=== PATIENT | male | born 1945 | race Caucasian/White ===

== ENCOUNTER → 2020-03-09 09:01 | Outpatient (BNVA) | payer MEDICARE, OTHER, SELFPAY | PROVIDERS: Family Provider Nurse Practitioner; PCP Nurse Practitioner; Visit Provider Internal Medicine Rheumatology | DX: M06.09 Rheumatoid arthritis without rheumatoid factor, multiple sites (principal); Z86.39 Personal history of other endocrine, nutritional and metabolic disease | CPT/HCPCS: 80053; 80061; 85025; 85651; 86140 ==

== ENCOUNTER → 2020-03-13 10:06 | Outpatient (BNVA) | payer MEDICARE, OTHER, SELFPAY | PROVIDERS: Family Provider Nurse Practitioner; PCP Nurse Practitioner; Visit Provider Nurse Practitioner | DX: R39.11 Hesitancy of micturition (principal) | CPT/HCPCS: 81000 ==

== ENCOUNTER 2020-03-18 10:03 | Outpatient (CLI) | payer MEDICARE, OTHER, SELFPAY ==
--- NOTE | 2020-03-18 10:24 | XR_ITS ---
WS: [id number] FOOT RIGHT TECHNIQUE: 3 views of the right foot CLINICAL INFORMATION: rheumatoid arthritis COMPARISON: None. FINDINGS: Osteopenia. Mild PIP and DIP joint narrowing second through fifth digits. Normal metatarsals. Sallie s enthesophyte. Vascular calcification. XR/XR foot RT min 3V* [id number] IMPRESSION: 1. Osteopenia. No significant erosive changes. 2. Mild degenerative arthritis as described above.
--- NOTE | 2020-03-18 10:24 | XR_ITS ---
WS: [id number] PROCEDURE: XR chest 2V* [id number] CLINICAL INFORMATION: rheumatoid arthritis COMPARISON: July 20, 2015 FINDINGS: Heart: Normal cardiac silhouette. Lungs: Mild chronic emphysematous changes. No acute pulmonary infiltrates. No focal pneumonia. Bones: Normal visualized bony structures. XR/XR chest 2V* [id number] IMPRESSION: Mild chronic emphysematous changes. No acute pulmonary infiltrates.
--- NOTE | 2020-03-18 10:24 | XR_ITS ---
WS: [id number] FOOT LEFT TECHNIQUE: 3 views of the left foot CLINICAL INFORMATION: rheumatoid arthritis COMPARISON: None. FINDINGS: Osteopenia. No significant erosive changes. PIP and DIP joint narrowing second through fifth digits. Mild soft tissue edema left foot. Vascular calcification. Small Achilles insertion enthesophyte. XR/XR foot LT min 3V* [id number] IMPRESSION: 1. Osteopenia. No significant erosive changes. 2. Mild degenerative arthritis described above.
--- NOTE | 2020-03-18 10:24 | XR_ITS ---
WS: [id number] HAND RIGHT TECHNIQUE: 3 views of the right hand CLINICAL INFORMATION: rheumatoid arthritis COMPARISON: None. FINDINGS: Degenerative joint space narrowing with subchondral sclerosis and periarticular erosive changes worse involving the first second and third MCP joints. This is worse at the first MCP joint. Mild DIP join t narrowing worse involving the third DIP. Mild narrowing of the radiocarpal joint. Moderate to advan sheyla degenerative narrowing at the first CMC. Vascular calcification. Osteopenia. XR/XR hand RT min 3V* [id number] IMPRESSION: Joint space narrowing with small particular erosions worse involving the first second and third MCP joints
--- NOTE | 2020-03-18 10:24 | XR_ITS ---
WS: [id number] HAND LEFT TECHNIQUE: 3 views of the left hand CLINICAL INFORMATION: rheumatoid arthritis COMPARISON: January 02, 2010 FINDINGS: Degenerative arthritis with joint space narrowing worse involving the first MCP and fourth PIP with b one-on-bone articulation and small periarticular erosions. Associated marginal osteophytes. Small art icular erosions involving the metatarsal heads. Joint space narrowing third MCP. Mild narrowing radio carpal joint. Vascular calcification. XR/XR hand LT min 3V* [id number] IMPRESSION: 1. Small particular erosions with joint space narrowing worse involving the fi rst MCP, fourth PIP, and the third MCP.
== END 2020-03-18 10:04 | disposition home or self-care (01) ==
LOC: RADWPI 10:06
PROVIDERS: Family Provider Nurse Practitioner; PCP Nurse Practitioner; Visit Provider Internal Medicine Rheumatology
DX: M06.9 Rheumatoid arthritis, unspecified; M85.89 Other specified disorders of bone density and structure, multiple sites; M19.072 Primary osteoarthritis, left ankle and foot; M19.071 Primary osteoarthritis, right ankle and foot; M85.842 Other specified disorders of bone density and structure, left hand; M85.841 Other specified disorders of bone density and structure, right hand
CPT/HCPCS: 71046; 73130; 73630; 99214

== ENCOUNTER → 2020-07-21 09:22 | Outpatient (BNVA) | payer MEDICARE, OTHER, SELFPAY | PROVIDERS: Family Provider Nurse Practitioner; PCP Nurse Practitioner; Visit Provider Internal Medicine Rheumatology | DX: Z79.899 Other long term (current) drug therapy (principal); Z11.59 Encounter for screening for other viral diseases; M06.00 Rheumatoid arthritis without rheumatoid factor, unspecified site | CPT/HCPCS: 80076; 82306; 82565; 84460; 85025; 85651; 86140; 86704 ==

== ENCOUNTER → 2020-07-29 09:18 | Outpatient (BNVA) | payer MEDICARE, OTHER, SELFPAY | PROVIDERS: Family Provider Nurse Practitioner; PCP Nurse Practitioner; Visit Provider Internal Medicine Rheumatology | DX: M06.041 Rheumatoid arthritis without rheumatoid factor, right hand (principal); M06.042 Rheumatoid arthritis without rheumatoid factor, left hand; Z79.899 Other long term (current) drug therapy; Z86.007 Personal history of in-situ neoplasm of skin | CPT/HCPCS: 99214 ==

== ENCOUNTER → 2020-10-20 08:04 | Outpatient (BNVA) | payer MEDICARE, OTHER, SELFPAY | PROVIDERS: Family Provider Nurse Practitioner; PCP Nurse Practitioner; Visit Provider Internal Medicine Rheumatology | DX: Z79.899 Other long term (current) drug therapy (principal); M06.9 Rheumatoid arthritis, unspecified; R39.11 Hesitancy of micturition; M06.00 Rheumatoid arthritis without rheumatoid factor, unspecified site | CPT/HCPCS: 80076; 81000; 82565; 85025; 85651; 86140 ==

== ENCOUNTER → 2020-11-10 08:41 | Outpatient (BNVA) | payer MEDICARE, OTHER, SELFPAY | PROVIDERS: Family Provider Nurse Practitioner; PCP Nurse Practitioner; Visit Provider Internal Medicine Rheumatology | DX: M06.041 Rheumatoid arthritis without rheumatoid factor, right hand (principal); M06.042 Rheumatoid arthritis without rheumatoid factor, left hand; Z79.899 Other long term (current) drug therapy; M19.041 Primary osteoarthritis, right hand; M19.042 Primary osteoarthritis, left hand; Z86.007 Personal history of in-situ neoplasm of skin; Z87.891 Personal history of nicotine dependence | CPT/HCPCS: 99214 ==

== ENCOUNTER → 2021-03-15 08:55 | Outpatient (BNVA) | payer MEDICARE, OTHER, SELFPAY | PROVIDERS: Family Provider Nurse Practitioner; PCP Nurse Practitioner; Visit Provider Internal Medicine Rheumatology | DX: Z79.899 Other long term (current) drug therapy (principal); M06.041 Rheumatoid arthritis without rheumatoid factor, right hand; M06.042 Rheumatoid arthritis without rheumatoid factor, left hand; M06.9 Rheumatoid arthritis, unspecified; M06.00 Rheumatoid arthritis without rheumatoid factor, unspecified site; Z71.89 Other specified counseling; R39.11 Hesitancy of micturition | CPT/HCPCS: 36415; 80076; 82565; 85025; 85651; 86140 ==

== ENCOUNTER → 2021-03-22 08:36 | Outpatient (BNVA) | payer MEDICARE, OTHER, SELFPAY | PROVIDERS: Family Provider Nurse Practitioner; PCP Nurse Practitioner; Visit Provider Internal Medicine Rheumatology | DX: M06.041 Rheumatoid arthritis without rheumatoid factor, right hand (principal); M06.042 Rheumatoid arthritis without rheumatoid factor, left hand; Z79.899 Other long term (current) drug therapy; M19.041 Primary osteoarthritis, right hand; M19.042 Primary osteoarthritis, left hand; Z87.891 Personal history of nicotine dependence | CPT/HCPCS: 99214 ==

== ENCOUNTER → 2021-07-06 08:46 | Outpatient (BNVA) | payer MEDICARE, OTHER, SELFPAY | PROVIDERS: Family Provider Nurse Practitioner; PCP Nurse Practitioner; Visit Provider Nurse Practitioner | DX: Z13.6 Encounter for screening for cardiovascular disorders (principal); M06.041 Rheumatoid arthritis without rheumatoid factor, right hand; M06.042 Rheumatoid arthritis without rheumatoid factor, left hand; Z79.899 Other long term (current) drug therapy; R39.11 Hesitancy of micturition; M06.00 Rheumatoid arthritis without rheumatoid factor, unspecified site; Z86.007 Personal history of in-situ neoplasm of skin | CPT/HCPCS: 80048; 80061; 80076; 82565; 85025; 86140 ==

== ENCOUNTER → 2021-07-20 09:16 | Outpatient (BNVA) | payer MEDICARE, OTHER, SELFPAY | PROVIDERS: Family Provider Nurse Practitioner; PCP Nurse Practitioner; Visit Provider Internal Medicine Rheumatology | DX: M06.041 Rheumatoid arthritis without rheumatoid factor, right hand (principal); M06.042 Rheumatoid arthritis without rheumatoid factor, left hand; Z79.899 Other long term (current) drug therapy; M19.041 Primary osteoarthritis, right hand; M19.042 Primary osteoarthritis, left hand; Z86.007 Personal history of in-situ neoplasm of skin; Z71.89 Other specified counseling; Z87.891 Personal history of nicotine dependence | CPT/HCPCS: 99214 ==

== ENCOUNTER → 2021-11-16 09:51 | Outpatient (BNVA) | payer MEDICARE, OTHER, SELFPAY | PROVIDERS: Family Provider Nurse Practitioner; PCP Nurse Practitioner; Visit Provider Internal Medicine Rheumatology | DX: M06.041 Rheumatoid arthritis without rheumatoid factor, right hand (principal); M06.042 Rheumatoid arthritis without rheumatoid factor, left hand; Z79.899 Other long term (current) drug therapy; M19.041 Primary osteoarthritis, right hand; M19.042 Primary osteoarthritis, left hand | CPT/HCPCS: 80076; 82565; 85025; 86140 ==

== ENCOUNTER → 2021-11-25 09:24 | Outpatient (BNVA) | payer MEDICARE, OTHER, SELFPAY | PROVIDERS: Family Provider Nurse Practitioner; PCP Nurse Practitioner; Visit Provider Internal Medicine Rheumatology | DX: M06.041 Rheumatoid arthritis without rheumatoid factor, right hand (principal); M06.042 Rheumatoid arthritis without rheumatoid factor, left hand; Z79.899 Other long term (current) drug therapy; Z71.89 Other specified counseling; M19.041 Primary osteoarthritis, right hand; M19.042 Primary osteoarthritis, left hand; Z87.891 Personal history of nicotine dependence | CPT/HCPCS: 99214 ==

== ENCOUNTER → 2022-01-25 09:42 | Outpatient (BNVA) | payer MEDICARE, OTHER, SELFPAY | PROVIDERS: Family Provider Nurse Practitioner; PCP Nurse Practitioner; Visit Provider Nurse Practitioner | DX: R39.11 Hesitancy of micturition (principal); Z79.899 Other long term (current) drug therapy | CPT/HCPCS: 80053 ==

== ENCOUNTER → 2022-03-14 08:31 | Outpatient (BNVA) | payer MEDICARE, OTHER, SELFPAY | PROVIDERS: Family Provider Nurse Practitioner; PCP Nurse Practitioner; Visit Provider Internal Medicine Rheumatology | DX: M06.041 Rheumatoid arthritis without rheumatoid factor, right hand (principal); M06.042 Rheumatoid arthritis without rheumatoid factor, left hand; Z79.899 Other long term (current) drug therapy; M06.9 Rheumatoid arthritis, unspecified; M06.00 Rheumatoid arthritis without rheumatoid factor, unspecified site | CPT/HCPCS: 80076; 82565; 85025; 86140 ==

== ENCOUNTER → 2022-03-22 08:59 | Outpatient (BNVA) | payer MEDICARE, OTHER, SELFPAY | PROVIDERS: Family Provider Nurse Practitioner; PCP Nurse Practitioner; Visit Provider Internal Medicine Rheumatology | DX: M06.041 Rheumatoid arthritis without rheumatoid factor, right hand (principal); M06.042 Rheumatoid arthritis without rheumatoid factor, left hand; M19.041 Primary osteoarthritis, right hand; M19.042 Primary osteoarthritis, left hand; Z79.899 Other long term (current) drug therapy; Z85.828 Personal history of other malignant neoplasm of skin; Z71.89 Other specified counseling | CPT/HCPCS: 99214 ==

== ENCOUNTER → 2022-07-06 08:19 | Outpatient (BNVA) | payer MEDICARE, OTHER, SELFPAY | PROVIDERS: Family Provider Nurse Practitioner; PCP Nurse Practitioner; Visit Provider Internal Medicine Rheumatology | DX: M06.00 Rheumatoid arthritis without rheumatoid factor, unspecified site (principal); Z79.899 Other long term (current) drug therapy | CPT/HCPCS: 80076; 82565; 85025; 86140 ==

== ENCOUNTER → 2022-07-19 10:04 | Outpatient (BNVA) | payer MEDICARE, OTHER, SELFPAY | PROVIDERS: Family Provider Nurse Practitioner; PCP Nurse Practitioner; Visit Provider Internal Medicine Rheumatology | DX: M06.041 Rheumatoid arthritis without rheumatoid factor, right hand (principal); M06.042 Rheumatoid arthritis without rheumatoid factor, left hand; Z71.89 Other specified counseling; Z79.899 Other long term (current) drug therapy; M19.041 Primary osteoarthritis, right hand; M19.042 Primary osteoarthritis, left hand; Z86.19 Personal history of other infectious and parasitic diseases; Z85.828 Personal history of other malignant neoplasm of skin | CPT/HCPCS: 99214 ==

== ENCOUNTER → 2022-08-02 08:47 | Outpatient (BNVA) | payer MEDICARE, OTHER, SELFPAY | PROVIDERS: Family Provider Nurse Practitioner; PCP Nurse Practitioner; Visit Provider Nurse Practitioner | DX: Z13.6 Encounter for screening for cardiovascular disorders (principal) | CPT/HCPCS: 80053; 80061; 81000 ==

== ENCOUNTER → 2022-11-03 08:43 | Outpatient (BNVA) | payer MEDICARE, OTHER, SELFPAY | PROVIDERS: Family Provider Nurse Practitioner; PCP Nurse Practitioner; Referring Provider Internal Medicine Rheumatology; Visit Provider Internal Medicine Rheumatology | DX: M06.00 Rheumatoid arthritis without rheumatoid factor, unspecified site (principal); Z79.899 Other long term (current) drug therapy; M06.9 Rheumatoid arthritis, unspecified | CPT/HCPCS: 80076; 82565; 85025 ==

== ENCOUNTER → 2022-11-16 09:27 | Outpatient (BNVA) | payer MEDICARE, OTHER, SELFPAY | PROVIDERS: Family Provider Nurse Practitioner; PCP Nurse Practitioner; Visit Provider Internal Medicine Rheumatology | DX: M06.041 Rheumatoid arthritis without rheumatoid factor, right hand (principal); M06.042 Rheumatoid arthritis without rheumatoid factor, left hand; Z79.899 Other long term (current) drug therapy; Z71.89 Other specified counseling; M19.041 Primary osteoarthritis, right hand; M19.042 Primary osteoarthritis, left hand; Z85.828 Personal history of other malignant neoplasm of skin; Z86.19 Personal history of other infectious and parasitic diseases | CPT/HCPCS: 99214 ==

== ENCOUNTER → 2023-01-03 09:00 | Outpatient (BNVA) | payer MEDICARE, OTHER, SELFPAY | PROVIDERS: Family Provider Nurse Practitioner; PCP Nurse Practitioner; Visit Provider Nurse Practitioner | DX: Z13.6 Encounter for screening for cardiovascular disorders (principal); Z79.899 Other long term (current) drug therapy | CPT/HCPCS: 80053; 80061; 85025 ==

== ENCOUNTER → 2023-02-14 09:03 | Outpatient (BNVA) | payer MEDICARE, OTHER, SELFPAY | PROVIDERS: Family Provider Nurse Practitioner; PCP Nurse Practitioner; Visit Provider Internal Medicine Rheumatology | DX: M06.041 Rheumatoid arthritis without rheumatoid factor, right hand (principal); M06.042 Rheumatoid arthritis without rheumatoid factor, left hand; Z79.899 Other long term (current) drug therapy | CPT/HCPCS: 80076; 82565; 85025; 86140 ==

== ENCOUNTER → 2023-02-21 09:44 | Outpatient (BNVA) | payer MEDICARE, OTHER, SELFPAY | PROVIDERS: Family Provider Nurse Practitioner; PCP Nurse Practitioner; Visit Provider Internal Medicine Rheumatology | DX: M06.041 Rheumatoid arthritis without rheumatoid factor, right hand (principal); M06.042 Rheumatoid arthritis without rheumatoid factor, left hand; M19.041 Primary osteoarthritis, right hand; M19.042 Primary osteoarthritis, left hand; Z79.899 Other long term (current) drug therapy; Z71.89 Other specified counseling | CPT/HCPCS: 99214 ==

== ENCOUNTER → 2023-03-24 08:20 | Outpatient (BNVA) | payer MEDICARE, OTHER, SELFPAY | PROVIDERS: Family Provider Nurse Practitioner; PCP Nurse Practitioner; Visit Provider Nurse Practitioner Family | DX: L57.0 Actinic keratosis (principal); Z85.828 Personal history of other malignant neoplasm of skin; Z87.891 Personal history of nicotine dependence; L57.8 Other skin changes due to chronic exposure to nonionizing radiation; D69.2 Other nonthrombocytopenic purpura; D22.5 Melanocytic nevi of trunk; Z71.89 Other specified counseling; L85.3 Xerosis cutis; D48.5 Neoplasm of uncertain behavior of skin | CPT/HCPCS: 11102; 17004; 99213 ==

== ENCOUNTER → 2023-04-18 07:45 | Outpatient (BNVA) | payer MEDICARE, OTHER, SELFPAY | PROVIDERS: Family Provider Nurse Practitioner; PCP Nurse Practitioner; Visit Provider Dermatology | DX: C44.329 Squamous cell carcinoma of skin of other parts of face (principal); L57.0 Actinic keratosis | CPT/HCPCS: 12052; 17000; 17003; 17311 ==

== ENCOUNTER → 2023-06-07 09:10 | Outpatient (BNVA) | payer MEDICARE, OTHER, SELFPAY | PROVIDERS: Family Provider Nurse Practitioner; PCP Nurse Practitioner; Visit Provider Internal Medicine Rheumatology | DX: M06.00 Rheumatoid arthritis without rheumatoid factor, unspecified site (principal); Z79.899 Other long term (current) drug therapy | CPT/HCPCS: 80076; 82565; 85025; 86140 ==

== ENCOUNTER → 2023-06-13 10:16 | Outpatient (BNVA) | payer MEDICARE, OTHER, SELFPAY | PROVIDERS: Family Provider Nurse Practitioner; PCP Nurse Practitioner; Visit Provider Internal Medicine Rheumatology | DX: M06.041 Rheumatoid arthritis without rheumatoid factor, right hand (principal); M06.042 Rheumatoid arthritis without rheumatoid factor, left hand; Z71.89 Other specified counseling; Z79.899 Other long term (current) drug therapy; M19.041 Primary osteoarthritis, right hand; M19.042 Primary osteoarthritis, left hand; Z85.828 Personal history of other malignant neoplasm of skin | CPT/HCPCS: 99214 ==

== ENCOUNTER → 2023-07-31 09:55 | Outpatient (BNVA) | payer MEDICARE, OTHER, SELFPAY | PROVIDERS: Family Provider Nurse Practitioner; PCP Nurse Practitioner; Visit Provider Nurse Practitioner Family | DX: L57.8 Other skin changes due to chronic exposure to nonionizing radiation (principal); D69.2 Other nonthrombocytopenic purpura; L81.4 Other melanin hyperpigmentation; D22.5 Melanocytic nevi of trunk; L85.3 Xerosis cutis; Z92.3 Personal history of irradiation; L82.1 Other seborrheic keratosis; Z08 Encounter for follow-up examination after completed treatment for malignant neoplasm; Z85.828 Personal history of other malignant neoplasm of skin; L57.0 Actinic keratosis | CPT/HCPCS: 17004; 99213 ==

== ENCOUNTER → 2023-08-21 09:06 | Outpatient (BNVA) | payer MEDICARE, OTHER, SELFPAY | PROVIDERS: Family Provider Nurse Practitioner; PCP Nurse Practitioner; Visit Provider Nurse Practitioner | DX: Z13.6 Encounter for screening for cardiovascular disorders (principal); Z79.899 Other long term (current) drug therapy | CPT/HCPCS: 80053; 80061; 85025; 85651; 86140 ==

== ENCOUNTER → 2023-10-18 10:17 | Outpatient (BNVA) | payer MEDICARE, OTHER, SELFPAY | PROVIDERS: Family Provider Nurse Practitioner; PCP Nurse Practitioner; Visit Provider Internal Medicine Rheumatology | DX: Z79.899 Other long term (current) drug therapy (principal); M06.041 Rheumatoid arthritis without rheumatoid factor, right hand; M06.042 Rheumatoid arthritis without rheumatoid factor, left hand; Z71.89 Other specified counseling; M19.041 Primary osteoarthritis, right hand; M19.042 Primary osteoarthritis, left hand | CPT/HCPCS: 99214 ==

== ENCOUNTER → 2023-10-25 08:09 | Outpatient (BNVA) | payer MEDICARE, OTHER, SELFPAY | PROVIDERS: Family Provider Nurse Practitioner; PCP Nurse Practitioner; Visit Provider Nurse Practitioner Family | DX: L57.0 Actinic keratosis (principal); L81.4 Other melanin hyperpigmentation; L57.8 Other skin changes due to chronic exposure to nonionizing radiation; D69.2 Other nonthrombocytopenic purpura | CPT/HCPCS: 17004; 99213 ==

== ENCOUNTER → 2023-11-22 08:46 | Outpatient (BNVA) | payer MEDICARE, OTHER, SELFPAY | PROVIDERS: Family Provider Nurse Practitioner; PCP Nurse Practitioner; Visit Provider Internal Medicine Rheumatology | DX: Z79.899 Other long term (current) drug therapy (principal); M06.041 Rheumatoid arthritis without rheumatoid factor, right hand; M06.042 Rheumatoid arthritis without rheumatoid factor, left hand | CPT/HCPCS: 80076; 82565; 85025; 86140 ==

== ENCOUNTER → 2024-01-10 08:26 | Outpatient (BNVA) | payer MEDICARE, OTHER, SELFPAY | PROVIDERS: Family Provider Nurse Practitioner; PCP Nurse Practitioner; Visit Provider Internal Medicine Rheumatology | DX: Z13.6 Encounter for screening for cardiovascular disorders (principal); Z79.899 Other long term (current) drug therapy; M06.00 Rheumatoid arthritis without rheumatoid factor, unspecified site | CPT/HCPCS: 80053; 80061; 80076; 82565; 85025; 86140 ==

== ENCOUNTER → 2024-01-24 10:39 | Outpatient (BNVA) | payer MEDICARE, OTHER, SELFPAY | PROVIDERS: Family Provider Nurse Practitioner; PCP Nurse Practitioner; Visit Provider Internal Medicine Rheumatology | DX: Z79.899 Other long term (current) drug therapy (principal); M06.041 Rheumatoid arthritis without rheumatoid factor, right hand; M06.042 Rheumatoid arthritis without rheumatoid factor, left hand; Z71.89 Other specified counseling; M19.041 Primary osteoarthritis, right hand; M19.042 Primary osteoarthritis, left hand | CPT/HCPCS: 99214 ==

== ENCOUNTER → 2024-01-31 08:41 | Outpatient (BNVA) | payer MEDICARE, OTHER, SELFPAY | PROVIDERS: Family Provider Nurse Practitioner; PCP Nurse Practitioner; Visit Provider Nurse Practitioner Family | DX: L57.0 Actinic keratosis (principal); L57.8 Other skin changes due to chronic exposure to nonionizing radiation; L81.4 Other melanin hyperpigmentation; D69.2 Other nonthrombocytopenic purpura; L85.3 Xerosis cutis; Z85.828 Personal history of other malignant neoplasm of skin | CPT/HCPCS: 17004; 99213 ==

== ENCOUNTER → 2024-06-03 08:59 | Outpatient (BNVA) | payer MEDICARE, OTHER, SELFPAY | PROVIDERS: Family Provider Nurse Practitioner; PCP Nurse Practitioner; Visit Provider Nurse Practitioner Family | DX: L57.0 Actinic keratosis (principal); L57.8 Other skin changes due to chronic exposure to nonionizing radiation; L81.4 Other melanin hyperpigmentation; D69.2 Other nonthrombocytopenic purpura; Z85.828 Personal history of other malignant neoplasm of skin | CPT/HCPCS: 17000; 99213 ==

== ENCOUNTER → 2024-06-19 08:36 | Outpatient (BNVA) | payer MEDICARE, OTHER, SELFPAY | PROVIDERS: Family Provider Nurse Practitioner; PCP Nurse Practitioner; Visit Provider Nurse Practitioner | DX: Z79.899 Other long term (current) drug therapy (principal); M06.041 Rheumatoid arthritis without rheumatoid factor, right hand; M06.042 Rheumatoid arthritis without rheumatoid factor, left hand | CPT/HCPCS: 80053; 80061; 80076; 85025; 85651; 86140 ==

== ENCOUNTER → 2024-06-26 10:07 | Outpatient (BNVA) | payer MEDICARE, OTHER, SELFPAY | PROVIDERS: Family Provider Nurse Practitioner; PCP Nurse Practitioner; Visit Provider Internal Medicine Rheumatology | DX: M06.041 Rheumatoid arthritis without rheumatoid factor, right hand (principal); M06.042 Rheumatoid arthritis without rheumatoid factor, left hand; Z79.899 Other long term (current) drug therapy; Z71.85 Encounter for immunization safety counseling; M19.041 Primary osteoarthritis, right hand; M19.042 Primary osteoarthritis, left hand; Z85.828 Personal history of other malignant neoplasm of skin | CPT/HCPCS: 99214 ==

== ENCOUNTER → 2024-09-18 08:26 | Outpatient (BNVA) | payer MEDICARE, OTHER, SELFPAY | PROVIDERS: Family Provider Nurse Practitioner; PCP Nurse Practitioner; Visit Provider Internal Medicine Rheumatology | DX: Z79.899 Other long term (current) drug therapy (principal); M06.041 Rheumatoid arthritis without rheumatoid factor, right hand; M06.042 Rheumatoid arthritis without rheumatoid factor, left hand | CPT/HCPCS: 80076; 82565; 85025; 85651; 86140 ==

== ENCOUNTER → 2024-10-17 10:39 | Outpatient (BNVA) | payer MEDICARE, OTHER, SELFPAY | PROVIDERS: Family Provider Nurse Practitioner; PCP Nurse Practitioner; Visit Provider Nurse Practitioner Family | DX: L57.8 Other skin changes due to chronic exposure to nonionizing radiation (principal); L81.4 Other melanin hyperpigmentation; D69.2 Other nonthrombocytopenic purpura; Z08 Encounter for follow-up examination after completed treatment for malignant neoplasm; Z85.828 Personal history of other malignant neoplasm of skin | CPT/HCPCS: 17004; 99213 ==

== ENCOUNTER → 2024-12-09 08:18 | Outpatient (BNVA) | payer MEDICARE, OTHER, SELFPAY | PROVIDERS: Family Provider Nurse Practitioner; PCP Nurse Practitioner; Visit Provider Internal Medicine Rheumatology | DX: Z79.899 Other long term (current) drug therapy (principal); Z13.6 Encounter for screening for cardiovascular disorders; M06.041 Rheumatoid arthritis without rheumatoid factor, right hand; M06.042 Rheumatoid arthritis without rheumatoid factor, left hand | CPT/HCPCS: 80053; 80061; 80076; 82565; 85025; 85651; 86140 ==

== ENCOUNTER → 2025-01-01 09:10 | Outpatient (BNVA) | payer MEDICARE, OTHER, SELFPAY | PROVIDERS: Family Provider Nurse Practitioner; PCP Nurse Practitioner; Visit Provider Internal Medicine Rheumatology | DX: M06.041 Rheumatoid arthritis without rheumatoid factor, right hand (principal); M06.042 Rheumatoid arthritis without rheumatoid factor, left hand; Z71.89 Other specified counseling; Z79.899 Other long term (current) drug therapy; M19.041 Primary osteoarthritis, right hand; M19.042 Primary osteoarthritis, left hand | CPT/HCPCS: 99214 ==

== ENCOUNTER → 2025-01-22 09:26 | Outpatient (BNVA) | payer MEDICARE, OTHER, SELFPAY | PROVIDERS: Family Provider Nurse Practitioner; PCP Nurse Practitioner; Visit Provider Nurse Practitioner Family | DX: L57.8 Other skin changes due to chronic exposure to nonionizing radiation (principal); L81.4 Other melanin hyperpigmentation; D69.2 Other nonthrombocytopenic purpura; Z08 Encounter for follow-up examination after completed treatment for malignant neoplasm; Z85.828 Personal history of other malignant neoplasm of skin; L57.0 Actinic keratosis | CPT/HCPCS: 17000; 99213 ==

== ENCOUNTER → 2025-03-19 08:37 | Outpatient (BNVA) | payer MEDICARE, OTHER, SELFPAY | PROVIDERS: Family Provider Nurse Practitioner; PCP Nurse Practitioner; Visit Provider Internal Medicine Rheumatology | DX: M06.00 Rheumatoid arthritis without rheumatoid factor, unspecified site (principal) | CPT/HCPCS: 80076; 82565; 85025; 85651; 86140 ==

== ENCOUNTER → 2025-04-07 10:13 | Outpatient (BNVA) | payer MEDICARE, OTHER, SELFPAY | PROVIDERS: Family Provider Nurse Practitioner; PCP Nurse Practitioner; Visit Provider Nurse Practitioner Family | DX: L57.8 Other skin changes due to chronic exposure to nonionizing radiation (principal); L81.4 Other melanin hyperpigmentation; D69.2 Other nonthrombocytopenic purpura; D22.4 Melanocytic nevi of scalp and neck; Z08 Encounter for follow-up examination after completed treatment for malignant neoplasm; R20.8 Other disturbances of skin sensation; Z78.9 Other specified health status; Z29.89 Encounter for other specified prophylactic measures; L57.0 Actinic keratosis | CPT/HCPCS: 17000; 17110; 99213 ==

== ENCOUNTER 2025-05-28 08:38 | Outpatient (CLI) | payer MEDICARE, OTHER, SELFPAY ==
[2025-05-28 10:16] LABS: Hematocrit 45.5 % (37-53); Hemoglobin 15.30 g/dL (11.27-16.99); Mean Corpuscular HGB Conc 33.6 g/dL (30-55); Mean Corpuscular Hemoglobin 34.2 pg (27-33); Mean Corpuscular Volume 101.6 fl (82-101); Nucleated Red Blood Cells % 0 %; Platelet Count 188 10^3/cmm (157-399); Red Blood Count 4.48 10^6/uL (3.85-5.65); White Blood Count 5.10 10^3/uL (3.29-11.43)
[2025-05-28 10:52] LABS: Alanine Aminotransferase 17 U/L (0-41); Albumin Level 4.2 g/dL (3.5-5.2); Alkaline Phosphatase 63 U/L (40-130); Aspartate Amino Transferase 23 U/L (0-40); Globulin 2.7 g/dL (1.3-4.6); Total Protein 6.9 g/dL (6.6-8.7)
== END 2025-05-28 08:39 | disposition home or self-care (01) ==
LOC: LAB 08:41
PROVIDERS: PCP Nurse Practitioner; Visit Provider Internal Medicine Rheumatology
DX: Z79.899 Other long term (current) drug therapy (principal); M06.00 Rheumatoid arthritis without rheumatoid factor, unspecified site
CPT/HCPCS: 36415; 80076; 82565; 85025; 85651; 86140

== ENCOUNTER → 2025-06-17 09:05 | Outpatient (BNVA) | payer MEDICARE, OTHER, SELFPAY | PROVIDERS: Family Provider Nurse Practitioner; PCP Nurse Practitioner; Visit Provider Internal Medicine Rheumatology | DX: M06.041 Rheumatoid arthritis without rheumatoid factor, right hand (principal); M06.042 Rheumatoid arthritis without rheumatoid factor, left hand; Z71.85 Encounter for immunization safety counseling; Z79.899 Other long term (current) drug therapy; M19.041 Primary osteoarthritis, right hand; M19.042 Primary osteoarthritis, left hand | CPT/HCPCS: 99214 ==

== ENCOUNTER → 2025-06-26 08:56 | Outpatient (BNVA) | payer MEDICARE, OTHER, SELFPAY | PROVIDERS: Family Provider Nurse Practitioner; PCP Nurse Practitioner; Visit Provider Nurse Practitioner Family | DX: L57.8 Other skin changes due to chronic exposure to nonionizing radiation (principal); L81.4 Other melanin hyperpigmentation; D22.4 Melanocytic nevi of scalp and neck; Z08 Encounter for follow-up examination after completed treatment for malignant neoplasm; Z85.828 Personal history of other malignant neoplasm of skin | CPT/HCPCS: 17000; 69100; 99213 ==

== ENCOUNTER 2025-09-17 08:59 | Outpatient (CLI) | payer MEDICARE, OTHER, SELFPAY ==
[2025-09-17 09:39] LABS: Hematocrit 48.3 % (37-53); Hemoglobin 15.90 g/dL (11.27-16.99); Mean Corpuscular HGB Conc 32.9 g/dL (30-55); Mean Corpuscular Hemoglobin 33.0 pg (27-33); Mean Corpuscular Volume 100.2 fl (82-101); Nucleated Red Blood Cells % 0 %; Platelet Count 192 10^3/cmm (157-399); Red Blood Count 4.82 10^6/uL (3.85-5.65); White Blood Count 5.03 10^3/uL (3.29-11.43)
[2025-09-17 10:05] LABS: Alanine Aminotransferase 13 U/L (0-41); Albumin Level 4.4 g/dL (3.5-5.2); Alkaline Phosphatase 79 U/L (40-130); Aspartate Amino Transferase 22 U/L (0-40); Globulin 2.9 g/dL (1.3-4.6); Total Protein 7.3 g/dL (6.6-8.7)
[2025-09-17 10:21] LABS: Hepatitis B Surface Antigen Non-Reactive (Nonreactive)
== END 2025-09-17 09:00 | disposition home or self-care (01) ==
LOC: LAB 09:02
PROVIDERS: PCP Nurse Practitioner; Visit Provider Internal Medicine Rheumatology
DX: Z79.899 Other long term (current) drug therapy (principal)
CPT/HCPCS: 36415; 80076; 82306; 82565; 85025; 85651; 86140; 86480; 86704; 86803; 87340

== ENCOUNTER → 2025-10-21 08:20 | Outpatient (BNVA) | payer MEDICARE, OTHER, SELFPAY | PROVIDERS: PCP Nurse Practitioner; Visit Provider Nurse Practitioner Family | DX: L57.8 Other skin changes due to chronic exposure to nonionizing radiation (principal); L81.4 Other melanin hyperpigmentation; D22.4 Melanocytic nevi of scalp and neck; Z08 Encounter for follow-up examination after completed treatment for malignant neoplasm; Z85.828 Personal history of other malignant neoplasm of skin; L57.0 Actinic keratosis | CPT/HCPCS: 17000; 69100; 99213 ==

== ENCOUNTER → 2025-10-27 10:59 | Outpatient (BNVA) | payer MEDICARE, OTHER, SELFPAY | PROVIDERS: Family Provider Nurse Practitioner; PCP Nurse Practitioner; Visit Provider Internal Medicine Rheumatology | DX: M06.041 Rheumatoid arthritis without rheumatoid factor, right hand (principal); M06.042 Rheumatoid arthritis without rheumatoid factor, left hand; Z71.85 Encounter for immunization safety counseling; Z79.899 Other long term (current) drug therapy; M19.041 Primary osteoarthritis, right hand; M19.042 Primary osteoarthritis, left hand | CPT/HCPCS: 99214 ==